=== PATIENT | male | born 1980 | race Hispanic/Latino ===

== ENCOUNTER → 2019-01-31 | Day surgery (SDC) | payer BC ==
[~2019-01-31] MED LIST: FENTANYL CITRATE/PF 100MCG/2 ML INJ ONE; FOLIC ACID PO; LISINOPRIL-HCT1 EAC1 PO; MIDAZOLAM HCL 2 MG/2 ML VIAL ONE; PROPOFOL IV EMULSION 10 MG/ML 20 ML VIAL ONE; [UNRECOGNIZED DRUG - OTHER] PO
--- OUTSIDE RECORDS SUMMARY | 2019-01-31 12:04 | XMS REPORT ---
[facility] Address Unknown Phone Unavailable Care Team Providers Care Flight Service Specialist Name Role Phone Unavailable Unavailable Payers Payer Name Policy Type Policy Number Effective Date Expiration Date Problems This patient has no known problems. Allergies, Adverse Reactions, Alerts This patient has no known allergies or adverse reactions. Medications This patient has no known medications. Encounters Start Date/Time End Date/Time Encounter Type Admission Type Attending Clinicians Care Facility Care Department Encounter ID 2017-05-22 20:42:53 2017-05-22 20:42:53 Emergency [facility] [id number] 2017-05-22 20:03:41 2017-05-22 20:03:41 Emergency [facility] [id number] 2016-12-24 19:14:54 2016-12-24 19:14:54 Emergency [facility] [id number]
[2019-01-31 14:00] VITALS: BP 126/80
== END | disposition home or self-care (01) ==
LOC: OR 11:45
PROVIDERS: ATTEND Internal Medicine
DX: K29.50 Unspecified chronic gastritis without bleeding (principal); B96.81 Helicobacter pylori [H. pylori] as the cause of diseases classified elsewhere; R16.0 Hepatomegaly, not elsewhere classified; R94.5 Abnormal results of liver function studies; R16.1 Splenomegaly, not elsewhere classified; I10 Essential (primary) hypertension; E66.01 Morbid (severe) obesity due to excess calories; Z01.810 Encounter for preprocedural cardiovascular examination; Z68.38 Body mass index [BMI] 38.0-38.9, adult; Z80.0 Family history of malignant neoplasm of digestive organs
CPT/HCPCS: 43239; 93005; J2250; J2704; J3010; 43235